=== PATIENT | female | born 1985 | race Caucasian/White ===

== ENCOUNTER 2016-05-07 15:59 | Emergency (ER) | payer OTHER ==
[2016-05-07 16:44] VITALS: BP 84/55
[2016-05-07] MEDS ORDERED: Ondansetron INJ* 2 MG/ML VIAL IV ONE (16:44)
[2016-05-07] MEDS ORDERED: NS 0.9% 1000 ML* 1,000 ML IV ONE (16:44)
--- NOTE | 2016-05-07 17:08 | UC ---
UC General HPI - HPI Summary HPI Summary: patient is having nausea and vomiting, no diarrhea, feels warm but no fever for 4 days. has not been tolerating food, only small amounts of liquid, she is fatigued. BP is low 88/55. - History of Current Complaint Chief Complaint: UCGeneralIllness Stated Complaint: GI COMPLAINT Time Seen by Provider: 05/07/16 16:44 Hx Obtained From: Patient Onset/Duration: Sudden Onset, Lasting Days Timing: Constant Onset Severity: Severe Current Severity: Moderate - Allergy/Home Medications Allergies/Adverse Reactions: Allergies Allergy/AdvReac Type Severity Reaction Status Date / Time No Known Allergies Allergy Verified 05/07/16 16:44 PMH/Surg Hx/FS Hx/Imm Hx Previously Healthy: Yes - Surgical History Surgical History: None - Family History Known Family History: Positive: Hypertension - mother - Social History Alcohol Use: Rare Substance Use Type: None Smoking Status (MU): Never Smoked Tobacco - Immunization History Most Recent Influenza Vaccination: unk Most Recent Tetanus Shot: unk Most Recent Pneumonia Vaccination: unk Review of Systems Constitutional: Chills, Fatigue Skin: Negative Eyes: Negative ENT: Negative Respiratory: Negative Cardiovascular: Negative Gastrointestinal: Abdominal Pain, Vomiting, Other - cramping Genitourinary: Negative Motor: Negative Neurovascular: Negative Musculoskeletal: Negative Neurological: Negative Psychological: Negative All Other Systems Reviewed And Are Negative: Yes Physical Exam Triage Information Reviewed: Yes Appearance: Well-Nourished, Ill-Appearing, Pain Distress Vital Signs: Initial Vital Signs Temp 98.9 F 05/07/16 16:40 Pulse 79 05/07/16 16:40 Resp 16 05/07/16 16:40 BP 84/55 05/07/16 16:40 Pulse Ox 100 05/07/16 16:40 Vital Signs Reviewed: Yes Eye Exam: Normal Eyes: Positive: Conjunctiva Clear ENT Exam: Normal ENT: Positive: Normal ENT inspection, Hearing grossly normal, Pharynx normal, TMs normal Dental Exam: Normal Neck exam: Normal Neck: Positive: Supple, Nontender, No Lymphadenopathy Respiratory Exam: Normal Respiratory: Positive: Chest non-tender, Lungs clear, Normal breath sounds Cardiovascular Exam: Normal Cardiovascular: Positive: RRR, No Murmur, Pulses Normal - diffuse tenderness on palpation, no palpable masses, no rebound tenderness - obturator sign, neg peritoneal signs. Bowel Sounds: Positive: Hyperactive Musculoskeletal Exam: Normal Musculoskeletal: Positive: Strength Intact, ROM Intact, No Edema Neurological Exam: Normal Neurological: Positive: Alert, Muscle Tone Normal Psychological Exam: Normal Skin Exam: Normal Re-Evaluation - Re-Evaluation First Eval Re-Evaluation Time: 17:25 Change: Improved - cramping and nausea have diminished Course/Dx - Course Course Of Treatment: hx obtained, exam performed, medication reviewed. UA obtained, neg for infection, IV fluids given as well as zofran. patient did get dizzy from IV stick but recovered well. improvement with medications. medication prescribed for home. - Differential Dx - Multi-Symptom Provider Diagnoses: nausea, cramping. dehydration Discharge - Discharge Plan Condition: Stable Disposition: HOME Patient Education Materials: Acute Nausea and Vomiting (ED) Referrals: NICOLAS Li [Primary Care Provider] - Additional Instructions: I recommend that you continue to increase fluid intake as tolerated. Use the Zofran as needed. Eat a bland "BRAT" type diet to work back into food. If vomiting persists, and you are unable to tolerate fluids or food, follow up with medical provider. I recommend that you start taking a good probiotic to help replenish your intestinal naida.
== END 2016-05-07 18:31 | disposition home or self-care (01) ==
LOC: UCEAST 15:59
DX: R11.0 Nausea (principal); R10.84 Generalized abdominal pain; E86.0 Dehydration
CPT/HCPCS: 81002; 96360; 96361; 96374; 99212; G0463; J2405

== ENCOUNTER 2017-01-06 13:42 | Emergency (ER) | payer OTHER ==
[2017-01-06 14:16] VITALS: BP 91/66
--- NOTE | 2017-01-06 14:59 | ED ---
Shortness of Breath - HPI Summary HPI Summary: 31 y/o female here c/o productive cough with yellow sputum and fever up to 102 and body aches for the last 7 days. She has been taking over the counter medications but symptoms have worsen. She reports no CP or palpitations. She has no other complaints. - History of Current Complaint Chief Complaint: UCRespiratory Time Seen by Provider: 01/06/17 14:45 Hx Obtained From: Patient Onset/Duration: Other - 7 days Timing: Constant Current Severity: Moderate Dyspnea At: Exertion Aggrevating Factors: Nothing Alleviating Factors: Nothing Associated Signs & Symptoms: Cough (Productive), Fever, Chills - Risk Factors Cardiac: Negative Pseudomonas: Negative Tuberculosis: Negative - Allergy/Home Medications Allergies/Adverse Reactions: Allergies Allergy/AdvReac Type Severity Reaction Status Date / Time No Known Allergies Allergy Verified 05/07/16 16:44 Home Medications: Home Medications Ibuprofen [Advil] 400 mg PO 01/06/17 [History] Txdlegeqgkssa-Tgreubnpnf-Smdpo [Slime Rhodes Plus Severe 10-12.5-20-650 mg] 1 pow PO 01/06/17 [History] PMH/Surg Hx/FS Hx/Imm Hx Cardiovascular History: Reports: Other Cardiovascular Problems/Disorders - HYPOTENSION History: Reports: Other Problems/Disorders - Endometriosis, IGA nephropathy. Psychiatric History: Reports: Hx Post Traumatic Stress Disorder Denies: Hx Eating Disorder, Hx of Violent Episodes Against Others Infectious Disease History: No Infectious Disease History: Denies: Traveled Outside the [place] in Last 30 Days - Family History Known Family History: Positive: Hypertension - mother - Social History Alcohol Use: Occasionally Substance Use Type: Reports: Marijuana Substance Use Comment - Amount & Last Used: once every few months Smoking Status (MU): Never Smoked Tobacco Review of Systems Positive: Fever, Chills Eyes: Negative Positive: Photophobia ENT: Negative Positive: Epistaxis Cardiovascular: Negative Positive: Palpitations Positive: Shortness Of Breath, Cough Positive: Diarrhea Genitourinary: Negative Positive: Myalgia Skin: Negative Neurological: Negative Psychological: Normal All Other Systems Reviewed And Are Negative: Yes Physical Exam - Summary Physical Exam Summary: VITAL SIGNS: Reviewed. GENERAL: Patient is a well developed and nourished who is sitting comfortable in the stretcher. Patient is not in any acute respiratory distress. HEAD AND FACE: Normacephalic and atraumatic. EYES: PERRLA, EOMI x 2, EARS: Hearing grossly intact. MOUTH: Oropharynx within normal limits. NECK: Supple, trachea is midline, no adenopathy, no JVD, no carotid bruit, no c- spine tenderness, neck with full ROM. CHEST: Symmetric, no tenderness at palpation LUNGS: Coarse breath sound bilateral CVS: RRR, S1 and S2 present, no murmurs or gallops appreciated. ABDOMEN: Soft, NT, No distention. Normal BS. EXTREMITIES: FROM in all major joints, no edema, no cyanosis or clubbing. NEURO: Alert and oriented x 3. No acute neurological deficits. Speech is normal and follows commands. SKIN: Dry and warm Triage Information Reviewed: Yes Vital Signs On Initial Exam: Initial Vitals Temp Pulse Resp BP Pulse Ox 99.1 F 88 18 91/66 99 01/06/17 14:11 01/06/17 14:11 01/06/17 14:11 01/06/17 14:11 01/06/17 14:11 Vital Signs Reviewed: Yes Diagnostics - Vital Signs Vital Signs Temp Pulse Resp BP Pulse Ox 01/06/17 14:11 99.1 F 88 18 91/66 99 - Laboratory Lab Statement: Any lab studies that have been ordered have been reviewed, and results considered in the medical decision making process. - Radiology 1 Xray Interpretation: Positive (See Comments) Course/Dx - Course Assessment/Plan: 31 y/o female here c/o productive cough with yellow sputum and fever up to 102 and body aches for the last 7 days. She has been taking over the counter medications but symptoms have worsen. She reports no CP or palpitations. She has no other complaints. CXR IMPRESSION: PATCHY AIRSPACE DISEASE OF THE LEFT LUNG. RECOMMEND FOLLOW-UP UNTIL RESOLUTION TO EXCLUDE. UNDERLYING PULMONARY PARENCHYMAL PATHOLOGY. Influenza test: negative. I will prescribe Azithromycin marielle for the pneumonia. She Will be treated as outpatient since she is saturating well and she is not toxic or ill looking tessalon tablets and Promethazine with Codeine and she will taking Tylenol and Ibuprofen for fever and body aches. I discussed all the findings and test results with the patient. if any of the symptoms of SOB, productive or dry cough, CP, fever, rigors, dizziness or any other symptom the patient should return to the of go to the nearest return or worsens. Patient understand and agree. Plan of care was discussed with the patient and understands and agrees. All questions were answered at patient satisfaction. There were no further complaints or concerns. Lung exam before discharge: CTA B/L. Good air exchange. No wheezing or crackles heard. CVS: S1 and S2 present. No murmurs appreciated. Patient is alert and oriented x 3. Patient is hemodynamically stable. 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 - Diagnoses Differential Diagnosis/HQI/PQRI: Positive: Asthma, Bronchitis, Chest Wall Pain, COPD Exacerbation, Pneumonia Provider Diagnoses: Pneumonia Discharge - Discharge Plan Condition: Stable Disposition: HOME Prescriptions: Azithromycin TAB* [Zithromax TAB (Z-MARIELLE) 250 mg #6 tabs] 2 tab PO .TODAY, THEN 1 DAILY #1 marielle Benzonatate CAP* [Tessalon 100 MG CAP*] 100 mg PO TID PRN #12 cap PRN Reason: Cough Promethazine W/Codeine [Promethazine/Codeine] 10 ml PO TID PRN #90 syp MDD 30 PRN Reason: Cough Patient Education Materials: Pneumonia (ED) Referrals: Ynes Knight NP [Primary Care Provider] - Additional Instructions: Increase hydration Tylenol or Ibuprofen for fever F/U with PCP
--- NOTE | 2017-01-06 15:10 | RAD ---
HISTORY: Cough and fever COMPARISONS: September 13, 2015 VIEWS: 4: Frontal dual-energy and lateral views of the chest. FINDINGS: CARDIOMEDIASTINAL SILHOUETTE: The cardiomediastinal silhouette is normal. KATALINA: The katalina are normal. PLEURA: The costophrenic angles are sharp. No pleural abnormalities are noted. LUNG PARENCHYMA: There is patchy alveolar opacification of the left mid and lower lung field. ABDOMEN: The upper abdomen is clear. There is no subphrenic gas. BONES AND SOFT TISSUES: No bone or soft tissue abnormalities are noted. OTHER: None. IMPRESSION: PATCHY AIRSPACE DISEASE OF THE LEFT LUNG. RECOMMEND FOLLOW-UP UNTIL RESOLUTION TO EXCLUDE UNDERLYING PULMONARY PARENCHYMAL PATHOLOGY.
== END 2017-01-06 15:55 | disposition home or self-care (01) ==
LOC: UCEAST 13:42
DX: J18.9 Pneumonia, unspecified organism (principal); I95.9 Hypotension, unspecified; F43.10 Post-traumatic stress disorder, unspecified; F12.90 Cannabis use, unspecified, uncomplicated; N80.9 Endometriosis, unspecified; N02.8 Recurrent and persistent hematuria with other morphologic changes
CPT/HCPCS: 71020; 87502; 99212; G0463

== ENCOUNTER 2018-12-23 17:37 | Emergency (ER) | payer OTHER ==
[2018-12-23 18:16] VITALS: BP 115/59
[2018-12-23] MEDS ORDERED: Acetaminophen TAB* 325 MG PO ONE (18:23)
--- NOTE | 2018-12-23 18:53 | UC ---
Throat Pain/Nasal Juwan HPI - HPI Summary HPI Summary: Patient is a 33-year-old female with the onset of sore throat fever and headache which started yesterday. Today she feels lightheaded and dizzy. She has had nausea but no vomiting. She is anorexic. 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 - History of Current Complaint Chief Complaint: UCRespiratory Stated Complaint: SORE THROAT, FEVER Time Seen by Provider: 12/23/18 18:12 Hx Obtained From: Patient Hx Last Menstrual Period: unknown Onset/Duration: Gradual Onset - She feels like Pain Intensity: 9 Cough: None Associated Signs & Symptoms: Positive: Fever - Epiglottits Risk Factors Epiglottis Risk Factors: Negative - Allergies/Home Medications Allergies/Adverse Reactions: Allergies Allergy/AdvReac Type Severity Reaction Status Date / Time No Known Allergies Allergy Verified 12/23/18 18:16 PMH/Surg Hx/FS Hx/Imm Hx Previously Healthy: Yes - Surgical History Surgical History: None - Family History Known Family History: Positive: Hypertension - mother - Social History Alcohol Use: Occasionally Substance Use Type: Marijuana Substance Use Comment - Amount & Last Used: once every few months Smoking Status (MU): Never Smoked Tobacco - Immunization History Most Recent Influenza Vaccination: unk Most Recent Tetanus Shot: unk Most Recent Pneumonia Vaccination: unk Review of Systems All Other Systems Reviewed And Are Negative: Yes Constitutional: Positive: Fever, Chills, Fatigue Eyes: Positive: Negative ENT: Positive: Sore Throat Respiratory: Positive: Negative Cardiovascular: Positive: Negative Gastrointestinal: Positive: Negative Genitourinary: Positive: Negative Motor: Positive: Negative Neurovascular: Positive: Negative Musculoskeletal: Positive: Negative Neurological: Positive: Headache Psychological: Positive: Negative Physical Exam Triage Information Reviewed: Yes Appearance: Well-Appearing, No Pain Distress, Well-Nourished Vital Signs: Initial Vital Signs Temp 102.6 F 12/23/18 18:10 Pulse 90 12/23/18 18:10 Resp 20 12/23/18 18:10 BP 115/59 12/23/18 18:10 Pulse Ox 100 12/23/18 18:10 Eyes: Positive: Conjunctiva Clear ENT: Positive: Hearing grossly normal, Pharyngeal erythema, TMs normal, Tonsillar swelling, Uvula midline. Negative: Nasal congestion, Nasal drainage, Tonsillar exudate, Trismus, Muffled voice, Hoarse voice, Sinus tenderness Dental Exam: Normal Neck: Positive: Supple, Nontender, Enlarged Nodes @ - ant cervical Respiratory: Positive: Lungs clear, Normal breath sounds, No respiratory distress, No accessory muscle use Cardiovascular: Positive: RRR, No Murmur, Pulses Normal Abdominal Exam: Normal Musculoskeletal: Positive: ROM Intact, No Edema Neurological: Positive: Alert Psychological Exam: Normal Skin Exam: Normal Diagnostics - Laboratory Lab Results: strep (-) Throat Pain/Nasal Course/Dx - Differential Dx/Diagnosis Provider Diagnosis: Pharyngitis Discharge ED - Sign-Out/Discharge Documenting (check all that apply): Patient Departure All imaging exams completed and their final reports reviewed: No Studies - Discharge Plan Condition: Stable Disposition: HOME Prescriptions: Cephalexin CAP* [Keflex CAP*] 500 mg PO BID #20 cap Patient Education Materials: Pharyngitis (ED) Referrals: Ynes Knight NP [Primary Care Provider] - 2 Days (recheck in 2-3 days if not better) Additional Instructions: rapid strep (-) culture pending recheck for new or worsening symptoms recheck in about 48 hours if still febrile rest fluids tylenol and/or advil - Billing Disposition and Condition Condition: STABLE Disposition: Home
[2018-12-23] MEDS ORDERED: Ibuprofen TAB* 600 MG PO ONE (18:57)
--- NOTE | 2018-12-25 15:19 | UC ---
- Progress Note Progress Note: Throat culture with Group C strep pt was treated with Keflex which should cover strep No change - can let pt know Course/Dx - Diagnoses Provider Diagnoses: Pharyngitis Discharge ED - Sign-Out/Discharge Documenting (check all that apply): Post-Discharge Follow Up All imaging exams completed and their final reports reviewed: No Studies - Discharge Plan Condition: Stable Disposition: HOME Prescriptions: Cephalexin CAP* [Keflex CAP*] 500 mg PO BID #20 cap Patient Education Materials: Pharyngitis (ED) Referrals: Ynes Knight NP [Primary Care Provider] - 2 Days (recheck in 2-3 days if not better) Additional Instructions: rapid strep (-) culture pending recheck for new or worsening symptoms recheck in about 48 hours if still febrile rest fluids tylenol and/or advil - Billing Disposition and Condition Condition: STABLE Disposition: Home
== END 2018-12-23 19:18 | disposition home or self-care (01) ==
LOC: UCEAST 17:37
DX: J02.9 Acute pharyngitis, unspecified (principal)
CPT/HCPCS: 87070; 87651; 99212; A9270-GY; G0463